=== PATIENT | female | born 1995 ===

== ENCOUNTER 2017-06-23 01:12 | Emergency (ER) | payer MEDICAID, OTHER ==
[2017-06-23 01:20] VITALS: BP 137/83; PULSE 88; RESP 16; TEMP 98.6; O2SAT 99
--- NOTE | 2017-06-23 01:42 | ED PDOC ---
HPI: Eye Injury/Pain Time Seen by Provider: 06/23/17 01:22 Chief Complaint (Nursing): Eye Problem Chief Complaint (Provider): left eye irritation History Per: Patient History/Exam Limitations: no limitations Onset/Duration Of Symptoms: Hrs Current Symptoms Are (Timing): Still Present Associated Symptoms: Pain (discomfrot), FB Sensation Additional History Per: Patient Additional Complaint(s): 22 y/o female presents with left eye irritation x 2 hours. Patient states she was using makeup wipe to remove her eye make up and suddenly felt discomfort to left eye. Patient states she feels as if something is in her eye, and tried irrigating eye with normal saline and using visine without improvement. Denies headache, vision changes, drainage from eye, swelling around eye, contact/ glasses use. Past Medical History Reviewed: Historical Data, Nursing Documentation, Vital Signs Vital Signs: Last Vital Signs Temp 98.6 F 06/23/17 01:17 Pulse 88 06/23/17 01:17 Resp 16 06/23/17 01:17 BP 137/83 06/23/17 01:17 Pulse Ox 99 06/23/17 01:17 - Medical History PMH: Anemia - Surgical History Surgical History: No Surg Hx - Family History Family History: States: Unknown Family Hx - Living Arrangements Living Arrangements: With Family - Immunization History Hx Tetanus Toxoid Vaccination: Yes (UTD) - Home Medications Home Medications: Ambulatory Orders Medication Instructions Recorded Ibuprofen [Motrin] 600 mg PO Q6H PRN #20 tab 01/07/16 - Allergies Allergies/Adverse Reactions: Allergies Allergy/AdvReac Type Severity Reaction Status Date / Time No Known Allergies Allergy Verified 01/07/16 10:10 Review of Systems ROS Statement: Except As Marked, All Systems Reviewed And Found Negative Eyes: Positive for: Pain (left) Physical Exam - Reviewed Nursing Documentation Reviewed: Yes Vital Signs Reviewed: Yes - Physical Exam Appears: Positive for: Well, Non-toxic, No Acute Distress Head Exam: Positive for: ATRAUMATIC, NORMAL INSPECTION, NORMOCEPHALIC Skin: Positive for: Normal Color Eye Exam: Positive for: Normal appearance, EOMI, PERRL, Other (no obvious FB noted bilaterally). Negative for: Periorbital swelling, Periorbital tenderness , Conjunctival injection ENT: Positive for: Normal ENT Inspection Neurologic/Psych: Positive for: Alert, Oriented - ECG O2 Sat by Pulse Oximetry: 99 - Progress ED Course And Treament: Left eye anesthesized with 2 drops tetracaine, fluro stain reveals no corneal uptake Upon flipping upper lid, foreign body/uptake noted, removed using Qtip. Patient educated on findings, discharged with instructions to follow up as needed. Return to ED for worsening/concerning symptoms. Disposition - Clinical Impression Clinical Impression: Foreign body of eyelid, left - Patient ED Disposition Is Patient to be Admitted: No - Disposition Referrals: Laura Ku MD [Primary Care Provider] - Binh Adams MD [Staff Provider] - Disposition: Routine/Home Disposition Time: 01:49 Condition: IMPROVED Instructions: Eye Foreign Body (ED)
== END 2017-06-23 02:04 | disposition home or self-care (01) ==
LOC: H.ER 01:12
DX: T15.12XA Foreign body in conjunctival sac, left eye, initial encounter (principal); Y92.89 Other specified places as the place of occurrence of the external cause